=== PATIENT | female | born 1960 | race Caucasian/White ===

== ENCOUNTER → 2016-08-02 | Outpatient (CLI) | payer MEDICAID | END | disposition home or self-care (01) | LOC: MW.CHPM 08:16 | PROVIDERS: ATTEND Anesthesiology | DX: Z51.81 Encounter for therapeutic drug level monitoring (principal); Z79.891 Long term (current) use of opiate analgesic | CPT/HCPCS: 80305 ==

== ENCOUNTER → 2016-10-01 | Outpatient (CLI) | payer MEDICAID | LOC: MW.CHPM 08:38 | PROVIDERS: ATTEND Anesthesiology | DX: Z51.81 Encounter for therapeutic drug level monitoring (principal); Z79.891 Long term (current) use of opiate analgesic | CPT/HCPCS: 80305 ==

== ENCOUNTER 2017-03-26 18:46 | Emergency (ER) | payer MEDICAID ==
[2017-03-26] MEDS ORDERED: Ondansetron 4 MG/2 ML SDV IVPUSH ONE (21:28)
[2017-03-26] MEDS ORDERED: Pantoprazole 40 MG in Sodium Chloride 0.9% 10 ML IVPUSH ONE (21:28)
--- NOTE | 2017-03-26 21:28 | EDM.PDOC ---
<Yehuda Power - Last Filed: 03/26/17 23:46> ED HPI GENERAL MEDICAL PROBLEM - General Chief Complaint: Gastrointestinal Problem Stated Complaint: DIARRHEA/VOMITING Time Seen by Provider: 03/26/17 21:11 - History of Present Illness INITIAL COMMENTS - FREE TEXT/NARRATIVE: The following information is given to patients seen in the emergency department who are being discharged to home. This information is to outline your options for follow-up care. We provide all patients seen in our emergency department with a follow-up referral. The need for follow-up, as well as the timing and circumstances, are variable depending upon the specifics of your emergency department visit. If you don't have a primary care physician on staff, we will provide you with a referral. We always advise you to contact your personal physician following an emergency department visit to inform them of the circumstance of the visit and for follow-up with them and/or the need for any referrals to a consulting specialist. The emergency department will also refer you to a specialist when appropriate. This referral assures that you have the opportunity for follow-up care with a specialist. All of these measure are taken in an effort to provide you with optimal care, which includes your follow-up. Under all circumstances we always encourage you to contact your private physician who remains a resource for coordinating your care. When calling for follow-up care, please make the office aware that this follow-up is from your recent emergency room visit. If for any reason you are refused follow-up, please contact the [facility] Emergency Department at and asked to speak to the emergency department charge nurse. Please return to seek medical attention if you experience, worsening vomiting, fever. Please follow-up to primary to provider in regards to her elevated white count within 1-2 days. Return to ED as needed as discussed - Related Data Allergies Allergy/AdvReac Type Severity Reaction Status Date / Time azithromycin Allergy unknown Verified 03/26/17 19:30 egg Allergy Other Verified 03/26/17 19:30 mushroom Allergy Other Verified 03/26/17 19:30 Penicillins Allergy unknown Verified 03/26/17 19:30 Sulfa (Sulfonamide Allergy unknown Verified 03/26/17 19:30 Antibiotics) Home Meds: Home Meds Morphine 15 mg PO BID 11/05/15 [History] oxyCODONE HCl/Acetaminophen [Oxycodone-Acetaminophen 5-325] 2 tab PO QID [History] Course - Vital Signs Last Recorded V/S: Last Vital Signs Temp 36.6 C 03/26/17 23:07 Pulse 60 03/26/17 23:07 Resp 18 03/26/17 23:07 BP 131/45 L 03/26/17 23:07 Pulse Ox 95 03/26/17 23:07 - Orders/Labs/Meds Orders: Active Orders 24 hr Category Date Time Status Abdomen 2V AP Flat Upright [CR] Stat Exams 03/26/17 22:32 Taken Abdomen Pelvis w Cont [CT] Stat Exams 03/26/17 22:27 Taken Chest 2V [CR] Stat Exams 03/26/17 21:45 Taken Labs: Laboratory Tests 03/26/17 03/26/17 03/26/17 Range/Units 21:09 21:09 22:03 WBC 16.09 H (4.0-11.0) K/uL RBC 5.33 (4.30-5.90) M/uL Hgb 15.6 (12.0-16.0) g/dL Hct 47.2 H (36.0-46.0) % MCV 88.6 (80.0-98.0) fL MCH 29.3 (27.0-32.0) pg MCHC 33.1 (31.0-37.0) g/dL RDW Std Deviation 44.1 (28.0-62.0) fl RDW Coeff of Jenny 14 (11.0-15.0) % Plt Count 279 (150-400) K/uL MPV 10.60 (7.40-12.00) fL Neut % (Auto) 86.6 H (48.0-80.0) % Lymph % (Auto) 8.9 L (16.0-40.0) % [place] % (Auto) 4.2 (0.0-15.0) % Eos % (Auto) 0.2 (0.0-7.0) % Baso % (Auto) 0.1 (0.0-1.5) % Neut # (Auto) 13.9 H (1.4-5.7) K/uL Lymph # (Auto) 1.4 (0.6-2.4) K/uL [place] # (Auto) 0.7 (0.0-0.8) K/uL Eos # (Auto) 0.0 (0.0-0.7) K/uL Baso # (Auto) 0.0 (0.0-0.1) K/uL Nucleated RBC % 0.0 /100WBC Nucleated RBCs # 0 K/uL Sodium 140 (136-146) mmol/L Potassium 4.1 (3.5-5.1) mmol/L Chloride 107 (98-110) mmol/L Carbon Dioxide 21 (21-31) mmol/L BUN 17 (6.0-23.0) mg/dL Creatinine 1.1 (0.6-1.5) mg/dL Est Cr Clr Drug Dosing 52.82 mL/min Estimated GFR (MDRD) 51.2 ml/min Glucose 165 H (60-110) mg/dL Calcium 10.4 (8.8-10.8) mg/dL Total Bilirubin 0.6 (0.1-1.5) mg/dL AST 16 (5-40) IU/L ALT 15 (8-54) IU/L Alkaline Phosphatase 100 (40-150) Troponin I < 0.10 (0.0-0.29) NG/ML Total Protein 8.5 H (6.0-8.0) g/dL Albumin 4.7 (3.5-5.0) g/dL Globulin 3.8 H (2.0-3.5) g/dL Albumin/Globulin Ratio 1.2 L (1.3-2.8) Lipase 20 (7-80) U/L Urine Color YELLOW Urine Appearance CLEAR Urine pH 5.5 (5.0-8.0) Ur Specific [place] 1.025 (1.001-1.035) Urine Protein NEGATIVE (NEGATIVE) mg/dL Urine Glucose (UA) >=1000 (NEGATIVE) mg/dL Urine Ketones 40 H (NEGATIVE) mg/dL Urine Occult Blood TRACE-INTACT (NEGATIVE) Urine Nitrite NEGATIVE (NEGATIVE) Urine Bilirubin NEGATIVE (NEGATIVE) Urine Urobilinogen 0.2 (<2.0) EU/dL Ur Leukocyte Esterase NEGATIVE (NEGATIVE) Urine RBC 1-5 (0-2/HPF) Urine WBC 0-2 (0-5/HPF) Ur Epithelial Cells FEW (NONE-FEW) Urine Bacteria FEW (NEGATIVE) Meds: Medications Discontinued Medications Generic Name Dose Route Start Last Admin Trade Name Craig PRN Reason Stop Dose Admin Pantoprazole Sodium 40 mg/ 10 mls @ 300 mls/hr 03/26/17 21:28 03/26/17 21:36 Sodium Chloride IVPUSH 03/26/17 21:29 300 mls/hr NOW ONE Administration Sodium Chloride 1,000 mls @ 999 mls/hr 03/26/17 21:29 03/26/17 21:33 Normal Saline IV 03/26/17 22:29 999 mls/hr STAT ONE Administration Sodium Chloride 1,000 mls @ 999 mls/hr 03/26/17 21:31 Normal Saline IV 03/26/17 22:31 .Bolus ONE Iopamidol 75 ml 03/26/17 23:15 03/26/17 23:17 Isovue Multipack-370 (76%) IVPUSH 03/26/17 23:16 75 ml ONETIME STA Administration Ondansetron HCl 4 mg 03/26/17 21:28 03/26/17 21:36 Zofran IVPUSH 03/26/17 21:29 4 mg ONETIME ONE Administration Departure - Departure Disposition: Home, Self-Care 01 Clinical Impression: Vomiting, Diarrhea, Gastroenteritis - Discharge Information Instructions: Viral Gastroenteritis, Adult, [id number] Referrals: PCP,None [Primary Care Provider] - Zion Patel MD [Family Provider] - Forms: ED Department Discharge - My Orders Last 24 Hours: My Active Orders 03/26/17 21:45 Chest 2V [CR] Stat 03/26/17 22:27 Abdomen Pelvis w Cont [CT] Stat 03/26/17 22:32 Abdomen 2V AP Flat Upright [CR] Stat - Assessment/Plan Last 24 Hours: My Active Orders 03/26/17 21:45 Chest 2V [CR] Stat 03/26/17 22:27 Abdomen Pelvis w Cont [CT] Stat 03/26/17 22:32 Abdomen 2V AP Flat Upright [CR] Stat <Juni Romero - Last Filed: 03/26/17 23:50> ED HPI GENERAL MEDICAL PROBLEM - History of Present Illness INITIAL COMMENTS - FREE TEXT/NARRATIVE: 56F with a past history of diabetes, htn, hld presents today with a chief complaint of vomiting, diarrhea and abdominal pain since this afternoon. Patient states that she has an egg white allergy and had bread pudding earlier today and she feels that this may be an allergic reaction. She states her vomit may have had minimal amounts of blood. Nonbloody diarrhea. Complains of chills, LUQ abdominal pain. She states she has a history of a hiatal hernia and this pain has occurred in the past. Denies chest pain, palpitations, flank pain, numbness or tingling. IVNS 1L Bolus Pantoprazole 40mg IV Once Zofran 4mg IV once CBC, CMP, Lipase, Troponin, CXR, Abdominal XRay, UA CBC - leukocytosis 16 abdominal Pain Score (Numeric/FACES): 5 Past Medical History HEENT History: Reports: Allergic Rhinitis, Impaired Vision Cardiovascular History: Reports: High Cholesterol, Hypertension Respiratory History: Reports: Asthma Gastrointestinal History: Reports: GERD, Hiatal Hernia Genitourinary History: Reports: None IV RN History: Reports: Musculoskeletal History: Reports: Fracture Neurological History: Reports: Migraines, Other (See Below) Other Neuro History: pinched nerves Psychiatric History: Reports: Bipolar, Depression, OCD, PTSD Endocrine/Metabolic History: Reports: Diabetes, Type II, Obesity/BMI 30+ Hematologic History: Reports: None Immunologic History: Reports: None Oncologic (Cancer) History: Reports: None Dermatologic History: Reports: None - Infectious Disease History Infectious Disease History: Reports: None - Past Surgical History Head Surgeries/Procedures: Reports: None HEENT Surgical History: Reports: Oral Surgery Neurological Surgical History: Reports: Lumbar Spine Musculoskeletal Surgical History: Reports: Arthroscopic Knee Social & Family History - Family History Family Medical History: Noncontributory - Tobacco Use Smoking Status *Q: Never Smoker Second Hand Smoke Exposure: No - Caffeine Use Caffeine Use: Reports: Soda, Tea - Recreational Drug Use Recreational Drug Use: No ED ROS GENERAL - Review of Systems Review Of Systems: ROS reveals no pertinent complaints other than HPI. ED EXAM, GI/ABD - Physical Exam Exam: See Below Exam Limited By: No Limitations General Appearance: Alert, WD/WN, No Apparent Distress Throat/Mouth: Normal Inspection, Normal Oropharynx Head: Atraumatic, Normocephalic Neck: Normal Inspection, Supple, Non-Tender Respiratory/Chest: No Respiratory Distress, Lungs Clear, Normal Breath Sounds, No Accessory Muscle Use, Chest Non-Tender Cardiovascular: Regular Rate, Rhythm, No Edema, No Murmur GI/Abdominal Exam: Normal Bowel Sounds, Soft, Other (mild tenderness to palpation in LUQ. no rebound, no distention) Extremities: Normal Inspection, No Pedal Edema, Normal Capillary Refill Course - Orders/Labs/Meds Meds: Medications Discontinued Medications Generic Name Dose Route Start Last Admin Trade Name Fredorys PRN Reason Stop Dose Admin Pantoprazole Sodium 40 mg/ 10 mls @ 300 mls/hr 03/26/17 21:28 03/26/17 21:36 Sodium Chloride IVPUSH 03/26/17 21:29 300 mls/hr NOW ONE Administration Sodium Chloride 1,000 mls @ 999 mls/hr 03/26/17 21:29 03/26/17 21:33 Normal Saline IV 03/26/17 22:29 999 mls/hr STAT ONE Administration Sodium Chloride 1,000 mls @ 999 mls/hr 03/26/17 21:31 Normal Saline IV 03/26/17 22:31 .Bolus ONE Iopamidol 75 ml 03/26/17 23:15 03/26/17 23:17 Isovue Multipack-370 (76%) IVPUSH 03/26/17 23:16 75 ml ONETIME STA Administration Ondansetron HCl 4 mg 03/26/17 21:28 03/26/17 21:36 Zofran IVPUSH 03/26/17 21:29 4 mg ONETIME ONE Administration Departure - Departure Time of Disposition: 23:50 Condition: Good - Problem List Review Problem List Initiated/Reviewed/Updated: Yes - Assessment/Plan Assessment:: Viral gastroenteritis leukocytosis P: discharge home with f/u with PCP within 1-2 days regarding elevated WBC.
[2017-03-26] MEDS ORDERED: Sodium Chloride 0.9% 1,000 ML IV ONE ×2 (21:29→21:31)
[2017-03-26 21:39] LABS: CHLORIDE,CL 107 mmol/L (98-110); SODIUM,NA 140 mmol/L (136-146)
[2017-03-26] MEDS ORDERED: Iopamidol 755 MG/ML 500 ML Multipack Bottle IVPUSH STA (23:15)
[2017-03-26 23:59] VITALS: BP 133/76
--- NOTE | 2017-03-28 14:06 | CR ---
EXAM DATE: 03/26/17 PATIENT'S AGE: 56 Patient: LUCÍA QURESHI Facility: [place], [place] Site . Site : 1960 Study: XRay Abdomen [id number]/11/2017 11:00:44 PM Ordering Physician: Nick Alfredo Final Report: INDICATION: Abdominal pain TECHNIQUE: Abdominal radiograph 2 views COMPARISON: None FINDINGS: Moderate degradation of image quality noted due to body habitus. Bowel: The bowel gas pattern is normal without evidence of bowel obstruction. Soft tissues: No evidence of pneumoperitoneum present. No sign of soft tissue mass seen. No suspicious calcifications noted. Bones: Unremarkable for age. IMPRESSION: 1. Unremarkable radiographs of the abdomen. Dictated by: Joseph Curry MD @ 03/26/2017 23:12:35 (Electronic Signature) Report Signed by Proxy. MTDWerner
--- NOTE | 2017-03-28 14:08 | CR ---
EXAM DATE: 03/26/17 PATIENT'S AGE: 56 Patient: LUCÍA QURESHI Facility: [place], [place] Site . Site : 1960 Study: XRay Chest [id number]/11/2017 11:01:15 PM Ordering Physician: Nick Alfredo Final Report: INDICATION: Chest pain TECHNIQUE: Chest radiograph 2 views COMPARISON: None FINDINGS: Cardiovascular and mediastinum: The cardiac silhouette is normal in appearance and size. Mediastinum is within normal limits. Lungs and pleural spaces: Both lungs are unremarkable in appearance. No sign of pleural effusion. No pneumothorax is seen. Bones and soft tissues: No significant findings. IMPRESSION: 1. No acute cardiopulmonary disease seen. Dictated by: Joseph Curry MD @ 03/26/2017 23:13:01 (Electronic Signature) Report Signed by Proxy. [facility]
--- NOTE | 2017-03-28 14:09 | CT ---
EXAM DATE: 03/26/17 PATIENT'S AGE: 56 Patient: LUCÍA QURESHI Facility: [place], [place] Site . Site : 1960 Study: CT Abdomen/Pelvis [id number]/11/2017 11:12:45 PM Ordering Physician: Nick Alfredo Final Report: INDICATION: Left abdominal pain. TECHNIQUE: CT Abdomen and pelvis with i.v. contrast. Coronal and sagittal reformats were obtained. CONTRAST: Intravenous COMPARISON: None FINDINGS: Lower chest: Unremarkable. Liver: Unremarkable. Spleen: Unremarkable. Pancreas: Unremarkable. Gallbladder: Unremarkable. Kidney: Unremarkable. No kidney or ureteral stones or obstruction seen. Adrenal: Unremarkable. GI tract: Unremarkable. The appendix is normal in appearance and size. Vascular: Unremarkable. Lymph: Unremarkable. Peritoneum: Unremarkable. No pneumoperitoneum is seen. No significant ascites is noted. Pelvis: The patient is status post prior hysterectomy. Soft tissue: Unremarkable. Bones: Unremarkable for age. IMPRESSION: 1. Unremarkable with no CT correlate for the patient`s symptoms seen. Dictated by Joseph Curry MD @ 03/26/2017 11:36:52 PM Dictated by: Joseph Curry MD @ 03/26/2017 23:36:59 (Electronic Signature) Report Signed by Proxy. MARTIN
== END 2017-03-27 | disposition home or self-care (01) ==
LOC: MW.ED 18:46
DX: A08.4 Viral intestinal infection, unspecified (principal); D72.829 Elevated white blood cell count, unspecified; E11.9 Type 2 diabetes mellitus without complications; Z88.1 Allergy status to other antibiotic agents; Z88.0 Allergy status to penicillin; Z88.2 Allergy status to sulfonamides; Z91.012 Allergy to eggs
CPT/HCPCS: 71020; 74020; 74177; 80053; 81001; 83690; 84484; 85025; 96361; 96374; 96375; 99284; C9113; J2405; J7040; Q9967; 99282

== ENCOUNTER 2017-07-29 18:41 | Emergency (ER) | payer MEDICAID ==
[2017-07-29] MEDS ORDERED: Ketorolac 60 MG/2 ML SDV IM ONE (20:00)
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
[2017-07-29 21:01] VITALS: BP 145/60
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
--- NOTE | 2017-08-01 12:48 | CR ---
EXAM DATE: 07/29/17 PATIENT'S AGE: 57 Patient: LUCÍA QURESHI Facility: [place], [place] Site . Site : 1960 Study: XRay Spine Cervical [id number]/16/2018 8:19:27 PM Ordering Physician: Doctor Bey Final Report: INDICATION: Neck pain TECHNIQUE: Cervical spine radiograph 3 view COMPARISON: None FINDINGS: Bones: Alignment is normal. No acute fractures or aggressive osseous lesions seen. Disc spaces: Multilevel degenerative changes, most severe at C5-C6 and C6-C7 levels with anterior marginal osteophytes. On AP view, multifocal facet and uncovertebral degenerative changes. Soft tissues: Unremarkable. Imaged lung apices are clear. IMPRESSION: 1. Moderate degree of cervical spine degenerative changes. Most severe degenerative disk disease at C5-C6 and C6-C7 levels. No acute fracture or abnormal subluxation. Consider correlation with cervical spine MRI as clinically warranted. Dictated by Martell Perez MD @ 07/29/2017 8:24:09 PM Dictated by: Martell Perez MD @ 07/29/2017 20:24:19 (Electronic Signature) Report Signed by Proxy. MARTIN
== END 2017-07-29 20:45 | disposition home or self-care (01) ==
LOC: MW.ED 18:41
DX: S60.012A Contusion of left thumb without damage to nail, initial encounter (principal); Y04.2XXA Assault by strike against or bumped into by another person, initial encounter
CPT/HCPCS: 72040; 72100; 73130; 96372; 99283; J1885; 99284